=== PATIENT | female | born 1995 | race African-American/Black ===

== ENCOUNTER 2019-06-03 17:04 | Emergency (ER) | payer SELFPAY ==
[~2019-06-03] VITALS: Ht 160 cm; Wt 63.5 kg
[2019-06-03 17:33] LABS: BILIRUBIN,URINE NEGATIVE (NEG); CLARITY,URINE TURBID; COLOR,URINE YELLOW; NITRITE,URINE NEGATIVE (NEG); PROTEIN,URINE NEGATIVE (NEG-TRACE)
[2019-06-03 17:39] LABS: BACTERIA,URINE FEW /HPF (0-FEW); RBC,URINE 0 /HPF (0-2); SQUAMOUS EPITHELIAL CELL,UR OCC /LPF; WBC,URINE OCC /HPF (0-4)
[2019-06-03 17:40] LABS: AMORPHOUS SEDIMENT,UR PRESENT /HPF
--- NOTE | 2019-06-03 17:49 | PHYS DOC ---
Adult General Chief Complaint Chief Complaint: ABDOMINAL PAIN HPI HPI 23-year-old female presents to ER via POV for complaints of intermittent abdominal pain for the past 2 weeks. Patient reports she has had intermittent nausea denies any vomiting or diarrhea episodes. She denies fever, urinary symptoms, or pain radiating into her back. She reports her menstrual cycles have been irregular at this year she did spot earlier in the month with last full menstrual cycle in January. Patient states she has had some "slimy" vaginal discharge denies odor. She reports she is not on control and does have concerns for ; she took a home test which was neg. Review of Systems Review of Systems Constitutional: Denies fever or chills [] Eyes: Denies change in visual acuity, redness, or eye pain [] HENT: Denies nasal congestion or sore throat [] Respiratory: Denies cough or shortness of breath [] Cardiovascular: No additional information not addressed in HPI [] GI: Denies abdominal pain, nausea, vomiting, bloody stools or diarrhea [] : Denies dysuria or hematuria [] Musculoskeletal: Denies back pain or joint pain [] Integument: Denies rash or skin lesions [] Neurologic: Denies headache, focal weakness or sensory changes [] Endocrine: Denies polyuria or polydipsia [] All other systems were reviewed and found to be within normal limits, except as documented in this note. Allergies Allergies Allergies Coded Allergies Type Severity Reaction Last Updated Verified Penicillins Allergy Intermediate 06/03/19 Yes Physical Exam Physical Exam Constitutional: Well developed, well nourished, no acute distress, non-toxic appearance. [] HENT: Normocephalic, atraumatic, bilateral external ears normal, oropharynx moist, no oral exudates, nose normal. [] Eyes: PERRLA, EOMI, conjunctiva normal, no discharge. [] Neck: Normal range of motion, no tenderness, supple, no stridor. [] Cardiovascular:Heart rate regular rhythm, no murmur [] Lungs & Thorax: Bilateral breath sounds clear to auscultation [] Abdomen: Bowel sounds normal, soft, no tenderness, no masses, no pulsatile masses. [] Skin: Warm, dry, no erythema, no rash. [] Back: No tenderness, no CVA tenderness. [] Extremities: No tenderness, no cyanosis, no clubbing, ROM intact, no edema. [] Neurologic: Alert and oriented X 3, normal motor function, normal sensory function, no focal deficits noted. [] Psychologic: Affect normal, judgement normal, mood normal. [] Current Patient Data Vital Signs Vital Signs Date Time Temp Pulse Resp B/P (MAP) Pulse Ox O2 Delivery O2 Flow Rate FiO2 06/03/19 17:42 97.9 77 14 118/66 (83) 100 Room Air 97.9 Lab Values Laboratory Tests Test 06/03/19 17:21 06/03/19 17:27 Urine Color Yellow Urine Clarity Turbid Urine pH 8.0 Urine Specific [place] 1.020 Urine Protein Negative mg/dL (NEG-TRACE) Urine Glucose (UA) Negative mg/dL (NEG) Urine Ketones (Stick) Negative mg/dL (NEG) Urine Blood Negative (NEG) Urine Nitrite Negative (NEG) Urine Bilirubin Negative (NEG) Urine Urobilinogen Dipstick 1.0 mg/dL (0.2 mg/dL) Urine Leukocyte Esterase Negative (NEG) Urine RBC 0 /HPF (0-2) Urine WBC Occ /HPF (0-4) Urine Squamous Epithelial Cells Occ /LPF Urine Amorphous Sediment Present /HPF Urine Bacteria Few /HPF (0-FEW) Urine Mucus Slight /LPF POC Urine HCG, Qualitative Hcg negative (Negative) Microbiology 06/03/19 Wet Prep - Final, Complete EKG EKG [] Radiology/Procedures Radiology/Procedures Pelvic Exam: RN Bilingual Office Assistant present 1800 Abdomen: Nontender External Genitalia: Normal Skin- no rash/lesions Speculum: Normal vaginal mucosa, yellowish thick vaginal discharge with odor. Cervical os. Bimanual: No adnexal masses or tenderness, No CMT Course & Med Decision Making Course & Med Decision Making Pertinent Labs reviewed. (See chart for details) Pt was evaluated in the ER for complaints of abdominal pain and concerns for as her menses have been irreg. Patient's UA was negative for infection. UCG was negative and patient was offered serum hCG test but she felt comfortable with urinary results. Patient had concerns as she is started having vaginal discharge and so pelvic exam was done with findings suggestive of BV. This was discussed with patient she was offered prophylactic treatment as her GC and chlamydia tests are pending. Patient wanted to hold off on any other treatment with plans to follow-up on her results in 2-3 days. Will provide patient with community clinic resource sheet and patient advised to follow-up for reevaluation and further care. Patient complained of intermittent abdominal pain and reports she's been under increased stress with new job and homeless situation. She reports history of ulcers. She was offered lab tests and GI cocktail for treatment she preferred no labs or dose of GI cocktail as she has had that in the past and did not care for it. She has been nontoxic in appearance and in no visible distress during ER visit. Education provided on signs and symptoms to return to ER. Discharge instructions were discussed. Patient to follow-up with primary care physician if symptoms persist or with any concerns. Dragon Disclaimer Dragon Disclaimer This electronic medical record was generated, in whole or in part, using a voice recognition dictation system. Departure Departure Impression: Primary Impression: Abdominal pain Additional Impression: Bacterial vaginosis Disposition: HOME, SELF-CARE Condition: STABLE Referrals: NO PCP (PCP) Patient Instructions: Abdominal Pain, Bacterial Vaginosis Additional Instructions: Drink plenty of fluids. Avoid NSAIDs and other irritants that may cause increased abdominal pain such as alcohol. [id number] anti-acids and other products such as Maalox as needed for abdominal pain as directed on container. Follow-up with your primary care physician for reevaluation and further care. While on the antibiotic you can take [id number] probiotics as directed on container to avoid further abdominal issues. Scripts Metronidazole (FLAGYL) 500 Mg Tablet 1 TAB PO BID, #14 TAB 0 Refills Prov: REYNA ORTEGA APRN 06/03/19 Problem Qualifiers REYNA ORTEGA APRN Jun 03, 2019 17:49
[2019-06-03] MEDS ORDERED: METR500T PO (18:27)
[2019-06-03 18:35] VITALS: BP 112/61
[2019-06-04 17:09] LABS: GC PROBE Negative (Negative)
== END 2019-06-03 18:41 | disposition home or self-care (01) ==
LOC: ER 17:04
DX: N76.0 Acute vaginitis (principal); B96.89 Other specified bacterial agents as the cause of diseases classified elsewhere; R10.9 Unspecified abdominal pain; R11.0 Nausea; Z88.0 Allergy status to penicillin; Z59.0 Homelessness
CPT/HCPCS: 81001; 81025; 87491; 87591; 99285; Q0111